=== PATIENT | female | born 1995 | race Caucasian/White ===

== ENCOUNTER 2019-02-28 18:01 | Emergency (ER) | payer SELFPAY, OTHER | END 2019-02-28 22:01 | disposition home or self-care (01) | LOC: JER 18:01 ==

== ENCOUNTER 2022-10-11 20:55 | Inpatient (IN) | payer OTHER ==
[2022-10-11] MEDS ORDERED: FENTANYL/BUPIVACAINE/NS/PF - PCEA - 50 ML DISP.SYRIN EP ONE (21:23)
[2022-10-11 21:37] LABS: BASO % 0.3 % (0-2.0); EOS % 0.5 % (0-4.5); HEMATOCRIT 38.4 % (32.4-45.2); HEMOGLOBIN 12.7 GM/dL (10.7-15.3); LYMPH % 15.1 % (8-40); MCH 28.5 pg (25.7-33.7); MEAN CELL VOLUME 86.4 fl (80-96); MONO % 8.3 % (3.8-10.2); NEUT % 75.8 % (42.8-82.8); PLATELET COUNT 186 10^3/uL (134-434); RBC 4.45 M/mm3 (3.60-5.2); RDW 13.5 % (11.6-15.6); WHITE BLOOD COUNT 12.2 K/mm3 (4.0-10.0)
[2022-10-11 21:45] LABS: INR 0.98 (0.83-1.09); PROTHROMBIN TIME (PATIENT) 11.3 SEC (9.7-13.0)
[2022-10-11 22:04] LABS: CALCIUM 9.1 mg/dL (8.5-10.1)
[2022-10-11 22:05] LABS: BLOOD UREA NITROGEN 6.4 mg/dL (7-18)
[2022-10-11 22:08] LABS: CREATININE 0.6 mg/dL (0.55-1.3)
[2022-10-11] MEDS ORDERED: OXYTOCIN 20 UNITS in 0.9% NS 20 UNIT/1,000 ML INFUS.BAG IV ONE (22:11)
[2022-10-11] MEDS ORDERED: NALOXONE HCL 0.4 MG/ML VIAL IVPUSH PRN (22:26)
[2022-10-11] MEDS ORDERED: FENTANYL/BUPIVACAINE/NS/PF - PCEA - 50 ML DISP.SYRIN EP SCH (22:30)
[2022-10-11] MEDS ORDERED: AMPICILLIN SODIUM 2 GM VIAL IVPB ONE (22:30)
[2022-10-11] MEDS ORDERED: ELECTROLYTE-148 SOLN 1,000 ML IV SCH ×2 (22:30→23:00)
[2022-10-11 22:32] VITALS: BMI 37.0
[2022-10-11] MEDS ORDERED: BENZOCAINE 20% 57 GM BOTTLE TP PRN (23:34)
[2022-10-11] MEDS ORDERED: BISACODYL 10 MG SUPP.RECT RC PRN (23:34)
[2022-10-11] MEDS ORDERED: WITCH HAZEL 50% (TUCKS) 40 PAD/JAR PAD TP PRN (23:34)
[2022-10-11] MEDS ORDERED: BENZOCAINE 28 GM HEMORRHOIDAL OINTMENT TP PRN (23:34)
[2022-10-11] MEDS ORDERED: METHYLERGONOVINE MALEATE 0.2 MG/1 ML AMP IM PRN (23:34)
[2022-10-11] MEDS ORDERED: OXYTOCIN 20 UNITS in 0.9% NS 20 UNIT/1,000 ML INFUS.BAG IV SCH (23:45)
[2022-10-11] MEDS: IBUPROFEN 600 MG TABLET (FP) PO PRN (23:50)
[2022-10-12] MEDS ORDERED: AMPICILLIN - 1 GM in SODIUM CHLORIDE 100 ML IVPB SCH (02:30)
[2022-10-12] MEDS: IBUPROFEN 600 MG TABLET (FP) PO PRN ×2 (02:52→09:04)
[2022-10-12] MEDS: ACETAMINOPHEN 325 MG TABLET (FP) PO PRN ×3 (06:44→17:28)
[2022-10-12 08:33] LABS: BASO % 0.3 % (0-2.0); EOS % 0.3 % (0-4.5); HEMATOCRIT 32.2 % (32.4-45.2); HEMOGLOBIN 10.5 GM/dL (10.7-15.3); LYMPH % 9.2 % (8-40); MCH 28.4 pg (25.7-33.7); MCHC 32.7 g/dl (32.0-36.0); MEAN CELL VOLUME 86.9 fl (80-96); MEAN PLT VOLUME 9.5 fl (7.5-11.1); MONO % 6.8 % (3.8-10.2); NEUT % 83.4 % (42.8-82.8); PLATELET COUNT 158 10^3/uL (134-434); RDW 13.3 % (11.6-15.6); WHITE BLOOD COUNT 14.2 K/mm3 (4.0-10.0)
[2022-10-12] MEDS: PRENATAL VITAMINS W/ FOLIC ACID TABLET (FP) PO SCH (09:04)
[2022-10-12] MEDS ORDERED: SENNOSIDES/DOCUSATE COMBO (SENNA PLUS) TABLET (UD) PO PRN (22:00)
[2022-10-13] MEDS: ACETAMINOPHEN 325 MG TABLET (FP) PO PRN (01:15)
[2022-10-13] MEDS: IBUPROFEN 600 MG TABLET (FP) PO PRN ×2 (03:59→09:07)
[2022-10-13 08:01] VITALS: RESP 16
[2022-10-13 08:03] VITALS: BP 124/70; PULSE 74; TEMP 98.6
[2022-10-13] MEDS: PRENATAL VITAMINS W/ FOLIC ACID TABLET (FP) PO SCH (09:04)
== END 2022-10-13 13:25 | disposition home or self-care (01) | DRG 560 ==
LOC: JLDR 20:55 → J3W 10-12 01:33
PROVIDERS: ADMIT Obstetrics & Gynecology; ATTEND Obstetrics & Gynecology
PROC: 10E0XZZ Delivery of Products of Conception, External Approach (ICD-10-PCS; principal; 2022-10-11)
PROC: 0W8NXZZ Division of Female Perineum, External Approach (ICD-10-PCS; 2022-10-11)
PROC: 0HQ9XZZ Repair Perineum Skin, External Approach (ICD-10-PCS; 2022-10-11)
PROC: 10907ZC Drainage of Amniotic Fluid, Therapeutic from Products of Conception, Via Natural or Artificial Opening (ICD-10-PCS; 2022-10-11)
DX: O70.0 First degree perineal laceration during delivery (principal); O99.824 Streptococcus B carrier state complicating childbirth; O77.0 Labor and delivery complicated by meconium in amniotic fluid; Z3A.38 38 weeks gestation of pregnancy; Z37.0 Single live birth
CPT/HCPCS: 36415; 59025; 59409; 80048; 85025; 85610; 85730; 86780; 86850; 86900; 86901; C9803-CS; U0003; U0005

== ENCOUNTER 2023-02-11 14:41 | Emergency (ER) | payer OTHER ==
[2023-02-11 15:00] VITALS: TEMP 98.2; BMI 35.4
[2023-02-11] MEDS ORDERED: SODIUM CHLORIDE 1,000 ML IV STA (15:51)
[2023-02-11] MEDS ORDERED: FAMOTIDINE 20 MG/50 ML IVPB 20 MG/50 ML MG IVPB ONE ×2 (15:51→15:58)
[2023-02-11 16:30] LABS: BASO % 0.9 % (0-2.0); EOS % 6.3 % (0-4.5); HEMATOCRIT 37.7 % (32.4-45.2); HEMOGLOBIN 12.6 GM/dL (10.7-15.3); LYMPH % 21.3 % (8-40); MCH 27.3 pg (25.7-33.7); MCHC 33.4 g/dl (32.0-36.0); MEAN CELL VOLUME 81.6 fl (80-96); MEAN PLT VOLUME 8.5 fl (7.5-11.1); MONO % 9.9 % (3.8-10.2); NEUT % 61.6 % (42.8-82.8); PLATELET COUNT 224 10^3/uL (134-434); RBC 4.61 M/mm3 (3.60-5.2); RDW 14.6 % (11.6-15.6)
[2023-02-11 16:47] LABS: POTASSIUM 4.2 mmol/L (3.5-5.1)
[2023-02-11 16:49] LABS: ALBUMIN 3.5 g/dl (3.4-5.0); CALCIUM 9.1 mg/dL (8.5-10.1)
[2023-02-11 16:52] LABS: CREATININE 0.8 mg/dL (0.55-1.3)
[2023-02-11 16:54] LABS: BILIRUBIN,TOTAL 0.3 mg/dL (0.2-1); TOT PROT 7.7 g/dl (6.4-8.2)
[2023-02-11 18:05] VITALS: BP 141/69; PULSE 72; RESP 20
== END 2023-02-11 18:55 | disposition home or self-care (01) ==
LOC: JER 14:41
PROC: 3E033GC Introduction of Other Therapeutic Substance into Peripheral Vein, Percutaneous Approach (ICD-10-PCS; principal; 2023-02-11)
DX: K64.9 Unspecified hemorrhoids (principal); R10.13 Epigastric pain
CPT/HCPCS: 36415; 76705-TC; 80053; 84703; 85025; 99284-25